=== PATIENT | male | born 1990 | race Caucasian/White ===

== ENCOUNTER 2018-05-02 23:35 | Emergency (ER) | payer OTHER ==
[~2018-05-02] VITALS: Ht 167.6 cm; Wt 54.4 kg
[2018-05-02 23:45] VITALS: BP 117/84
--- NOTE | 2018-05-02 23:52 | NUR ---
PT TAKEN TO BED 12
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
--- NOTE | 2018-05-03 | NUR ---
MD at bedside to evaluate Pt. Dermabond used to close laceration.
--- NOTE | 2018-05-03 00:10 | NUR ---
Consent signed for Tdap vaccination. R/b explained. Pt verbalized understanding.
[2018-05-03 00:20] VITALS: BP 117/84
--- NOTE | 2018-05-03 00:20 | NUR ---
Patient discharged with v/s stable. Written and verbal after care instructions given and explained. Patient verbalized understanding. Ambulatory with steady gait. All questions addressed prior to discharge. Advised to follow up with PMD.
== END 2018-05-03 00:30 | disposition home or self-care (01) ==
LOC: MED 23:35
DX: S51.812A Laceration without foreign body of left forearm, initial encounter (principal); Z23 Encounter for immunization; W45.8XXA Other foreign body or object entering through skin, initial encounter; Y93.89 Activity, other specified; Y92.89 Other specified places as the place of occurrence of the external cause; Y99.8 Other external cause status
CPT/HCPCS: 90471; 90715; 99283

== ENCOUNTER 2021-02-27 14:34 | Emergency (ER) | payer OTHER ==
[~2021-02-27] VITALS: Ht 180.3 cm; Wt 83.9 kg
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
--- NOTE | 2021-02-27 15:00 | NUR ---
PT SENT TO CT WITH [facility]
[2021-02-27 15:02] VITALS: BP 128/84
[2021-02-27 15:10] VITALS: BP 128/84
--- NOTE | 2021-02-27 15:16 | NUR ---
PT BACK FROM CT
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
== END 2021-02-27 15:51 ==
LOC: MED 14:34
DX: S10.83XA Contusion of other specified part of neck, initial encounter (principal); S00.83XA Contusion of other part of head, initial encounter; Z02.89 Encounter for other administrative examinations; W22.8XXA Striking against or struck by other objects, initial encounter; Y93.89 Activity, other specified; Y92.89 Other specified places as the place of occurrence of the external cause; Y99.8 Other external cause status
CPT/HCPCS: 70450; 71045; 99284; Q0092

== ENCOUNTER 2021-05-18 02:32 | Emergency (ER) | payer OTHER ==
[~2021-05-18] VITALS: Ht 167.6 cm; Wt 54.4 kg
[2021-05-18 02:41] VITALS: BP 135/86
[2021-05-18] MEDS ORDERED: BACITRACIN OINT 500 UNITS/GM PKT TP ONE (02:50)
[2021-05-18] MEDS ORDERED: LIDOCAINE/EPI 1% 1:100000 20 ML VIAL INJ ONE (02:50)
[2021-05-18] MEDS ORDERED: cephALEXin 500 MG CAP PO ONE (05:45)
[2021-05-18] MEDS ORDERED: CEPH-588 PO (06:09)
[2021-05-18] MEDS ORDERED: BACI1PAC6 TP (06:10)
[2021-05-18 06:20] VITALS: BP 162/67
== END 2021-05-18 06:20 | disposition home or self-care (01) ==
LOC: MED 02:32
DX: S51.812A Laceration without foreign body of left forearm, initial encounter (principal); Z79.2 Long term (current) use of antibiotics; X99.1XXA Assault by knife, initial encounter; Y93.89 Activity, other specified; Y92.89 Other specified places as the place of occurrence of the external cause; Y99.8 Other external cause status
CPT/HCPCS: 12002; 99283; J2001

== ENCOUNTER 2022-12-12 22:23 | Emergency (ER) | payer OTHER ==
[~2022-12-12] VITALS: Ht 167.6 cm; Wt 59.0 kg
[~2022-12-12 22:23] MED LIST: BACI-418 TP; CEPH-588 PO
[2022-12-12 22:25] VITALS: BP 98/62; PULSE 120; RESP 16; TEMP 97.4; O2SAT 99
[2022-12-12 22:46] VITALS: BP 98/62; PULSE 120; RESP 16; TEMP 97.4; O2SAT 99
== END 2022-12-12 22:46 ==
LOC: MED 22:23
DX: S21.131A Puncture wound without foreign body of right front wall of thorax without penetration into thoracic cavity, initial encounter (principal); T75.4XXA Electrocution, initial encounter; Y93.89 Activity, other specified; Y92.89 Other specified places as the place of occurrence of the external cause; Y99.8 Other external cause status
CPT/HCPCS: 71045; 99283